=== PATIENT | male | born 1940 | race Caucasian/White ===

== ENCOUNTER 2019-06-29 08:42 | Observation (INO) | payer MEDICARE, BC ==
--- NOTE | 2019-06-29 09:12 | EDM.PDOC ---
ED HPI GENERAL MEDICAL PROBLEM - General Chief Complaint: Cardiovascular Problem Stated Complaint: DIZZY/LIGHT HEADED Time Seen by Provider: 06/29/19 09:01 Source of Information: Reports: Patient, EMS Notes Reviewed History Limitations: Reports: No Limitations - History of Present Illness INITIAL COMMENTS - FREE TEXT/NARRATIVE: This is a pleasant elderly gentleman who presents to the emergency room with a history of feeling dizzy this morning while backing his car up. Patient denies chest pain shortness of breath nausea or vomiting. States he has had a heart attack 15 years ago and at that time felt dizzy but had chest pain and arm pain. Patient has had 4 stents. Onset: Today Duration: Hour(s):, Resolved Prior to Arrival Location: Reports: Generalized Severity: Moderate Improves with: Reports: Rest Associated Symptoms: Reports: Weakness - Related Data Allergies Allergy/AdvReac Type Severity Reaction Status Date / Time Penicillins Allergy Rash Verified 06/29/19 09:08 Home Meds: Home Meds Aspirin [Halfprin] 81 mg PO DAILY 05/20/13 [History] Benazepril [Lotensin] 20 mg PO BID 05/20/13 [History] Folic Acid 1 mg PO DAILY 05/20/13 [History] Metoprolol Succinate [Toprol XL] 50 mg PO DAILY 05/20/13 [History] atorvaSTATin [Lipitor] 20 mg PO BEDTIME 05/20/13 [History] ED ROS GENERAL - Review of Systems Review Of Systems: See Below Constitutional: Reports: No Symptoms HEENT: Reports: No Symptoms Respiratory: Reports: No Symptoms Cardiovascular: Reports: Lightheadedness Endocrine: Reports: No Symptoms GI/Abdominal: Reports: No Symptoms : Reports: No Symptoms Musculoskeletal: Reports: No Symptoms Skin: Reports: No Symptoms Neurological: Reports: No Symptoms Psychiatric: Reports: No Symptoms Hematologic/Lymphatic: Reports: No Symptoms Immunologic: Reports: No Symptoms ED EXAM, GENERAL - Physical Exam Exam: See Below Exam Limited By: No Limitations General Appearance: Alert, WD/WN, No Apparent Distress Eye Exam: Bilateral Eye: Normal Fundi, Normal Inspection Ear Exam: Bilateral Ear: Auricle Normal, Canal Normal Nose: Normal Inspection, Normal Mucosa Throat/Mouth: Normal Inspection, Normal Lips, Normal Teeth, Normal Oropharynx, Normal Voice Head: Atraumatic, Normocephalic Neck: Normal Inspection, Supple, Non-Tender Respiratory/Chest: No Respiratory Distress, Lungs Clear, Normal Breath Sounds, No Accessory Muscle Use, Chest Non-Tender Cardiovascular: Normal Peripheral Pulses, Regular Rate, Rhythm, No Edema, No Gallop, No JVD GI/Abdominal: Normal Bowel Sounds, Soft, Non-Tender, No Organomegaly, No Distention, No Abnormal Bruit, No Mass (Male) Exam: Deferred Rectal (Males) Exam: Deferred Back Exam: Normal Inspection, Full Range of Motion Extremities: Normal Inspection, Normal Range of Motion, Non-Tender, No Pedal Edema, Normal Capillary Refill Neurological: Alert, Oriented, CN II-XII Intact, Normal Cognition, Normal Gait, Normal Reflexes, No Motor/Sensory Deficits Psychiatric: Normal Affect, Normal Mood Skin Exam: Warm, Dry, Intact, Normal Color, No Rash Lymphatic: No Adenopathy EKG INTERPRETATION EKG Date: 06/29/19 Comparison: NA - No Prior EKG (In the 40s with PVCs) Course - Vital Signs Text/Narrative:: 79-year-old gentleman resents emergency room with dizziness after backing up his car this morning. Patient denies chest pain shortness of breath nausea or vomiting. Patient called 911 was brought to the emergency room EKG shows a PVCs with a rate down into the 40s. Patient is asymptomatic at this time. Patient's physical exam is noncontributory. Patient is a pleasant elderly gentleman in no distress. New Patient's labs are normal cardiac enzymes are negative. Patient has been monitored in the ER 2 hours noted to his heart rate drops in the 40s he is sleeping and asymptomatic Have discussed the case with Dr. Méndez the hospitalist on-call. [place] patient can be admitted to observation diagnosis symptomatic bradycardia on beta- blockers Last Recorded V/S: Last Vital Signs Temp 97.8 F 06/29/19 09:01 Pulse 69 06/29/19 09:01 Resp 18 06/29/19 09:01 BP 136/69 06/29/19 09:01 Pulse Ox 94 L 06/29/19 09:01 - Orders/Labs/Meds Orders: Active Orders 24 hr Category Date Time Status EKG 12 Lead [EKG Documentation Completion] [RC] ROUTINE Care 06/29/19 09:12 Active Labs: Laboratory Tests 06/29/19 06/29/19 06/29/19 Range/Units 08:45 08:45 08:45 WBC 7.49 (4.0-11.0) K/uL RBC 4.84 (4.50-5.90) M/uL Hgb 15.5 (13.0-17.0) g/dL Hct 47.0 (38.0-50.0) % MCV 97.1 (80.0-98.0) fL MCH 32.0 (27.0-32.0) pg MCHC 33.0 (31.0-37.0) g/dL RDW Std Deviation 47.0 (28.0-62.0) fl RDW Coeff of Melba 13 (11.0-15.0) % Plt Count 207 (150-400) K/uL MPV 10.60 (7.40-12.00) fL Neut % (Auto) 60.1 (48.0-80.0) % Lymph % (Auto) 21.9 (16.0-40.0) % [place] % (Auto) 12.0 (0.0-15.0) % Eos % (Auto) 5.6 (0.0-7.0) % Baso % (Auto) 0.4 (0.0-1.5) % Neut # (Auto) 4.5 (1.4-5.7) K/uL Lymph # (Auto) 1.6 (0.6-2.4) K/uL [place] # (Auto) 0.9 H (0.0-0.8) K/uL Eos # (Auto) 0.4 (0.0-0.7) K/uL Baso # (Auto) 0.0 (0.0-0.1) K/uL Nucleated RBC % 0.0 /100WBC Nucleated RBCs # 0 K/uL INR 1.04 Sodium 140 (136-148) mmol/L Potassium 3.9 (3.5-5.1) mmol/L Chloride 103 (98-107) mmol/L Carbon Dioxide 27.3 (21.0-32.0) mmol/L BUN 15 (7.0-18.0) mg/dL Creatinine 1.1 (0.8-1.3) mg/dL Est Cr Clr Drug Dosing 63.31 mL/min Estimated GFR (MDRD) > 60.0 ml/min Glucose 111 H (74-106) mg/dL Calcium 8.6 (8.5-10.1) mg/dL Total Bilirubin 1.4 H (0.2-1.0) mg/dL AST 25 (15-37) IU/L ALT 29 (14-63) IU/L Alkaline Phosphatase 44 L (46-116) U/L Troponin I < 0.050 (0.000-0.056) ng/mL Total Protein 6.6 (6.4-8.2) g/dL Albumin 3.7 (3.4-5.0) g/dL Globulin 2.9 (2.6-4.0) g/dL Albumin/Globulin Ratio 1.3 (0.9-1.6) Meds: Medications Discontinued Medications Generic Name Dose Route Start Last Admin Trade Name Dm PRN Reason Stop Dose Admin Aspirin 324 mg 06/29/19 09:14 06/29/19 09:38 Aspirin PO 06/29/19 09:15 Not Given ONETIME ONE Sodium Chloride 1,000 mls @ 1,000 mls/hr 06/29/19 09:13 06/29/19 09:37 Normal Saline IV 06/29/19 10:12 1,000 mls/hr .Bolus ONE Administration Departure - Departure Time of Disposition: 10:45 Disposition: Refer to Observation Condition: Good Clinical Impression: Bradycardia Referrals: Mario Villeda MD [Primary Care Provider] - Forms: ED Department Discharge Sepsis Event Note - Evaluation Sepsis Screening Result: No Definite Risk - Focused Exam Vital Signs: Vital Signs Temp Pulse Resp BP Pulse Ox 06/29/19 09:01 97.8 F 69 18 136/69 94 L Date Exam was Performed: 06/29/19 Time Exam was Performed: 10:42 - My Orders Last 24 Hours: My Active Orders 06/29/19 09:12 EKG 12 Lead [EKG Documentation Completion] [RC] ROUTINE - Assessment/Plan Last 24 Hours: My Active Orders 06/29/19 09:12 EKG 12 Lead [EKG Documentation Completion] [RC] ROUTINE
[2019-06-29] MEDS ORDERED: Sodium Chloride 0.9% 1,000 ML IV ONE (09:13)
[2019-06-29] MEDS ORDERED: Aspirin 81 MG Tab.Chew PO ONE (09:14)
[2019-06-29 09:37] LABS: BLOOD UREA NITROGEN,BUN 15 mg/dL (7.0-18.0); CARBON DIOXIDE,CO2 27.3 mmol/L (21.0-32.0); CHLORIDE,CL 103 mmol/L (98-107); GLUCOSE RANDOM 111 mg/dL (74-106); POTASSIUM,K 3.9 mmol/L (3.5-5.1); SODIUM,NA 140 mmol/L (136-148)
--- NOTE | 2019-06-29 10:36 | CR ---
Chest: Portable view of the chest was obtained. Comparison: No prior chest imaging. Heart size is normal. Tortuous thoracic aorta is seen. Lungs are clear with no acute parenchymal change. Bony structures are grossly intact. Impression: 1. Nothing acute is appreciated on portable chest x-ray. Diagnostic code #1 This report was dictated in MDT
[2019-06-29] MEDS ORDERED: Acetaminophen 325 MG Tab PO PRN (11:47)
[2019-06-29] MEDS ORDERED: Ondansetron 4 MG/2 ML SDV IVPUSH PRN (11:47)
--- NOTE | 2019-06-29 12:02 | PCM.HP.2 ---
H&P History of Present Illness - General Date of Service: 06/29/19 Admit Problem/Dx: Admission Diagnosis/Problem Admission Diagnosis/Problem Bradyarrhythmia Source of Information: Patient, Old Records History Limitations: Reports: No Limitations - History of Present Illness Initial Comments - Free Text/Narative: This 79 year old male with pmh of HTN, CAD with stenting 15 years ago presented to the ED with complaints of dizziness that happened this morning. He reports he went about his morning as usual, went outside to move his car and then walked into the house and started feeling lightheaded and dizzy. He denies feeling as though he was going to pass out. He rested for a while and it go better. Then headed out to run errands and it returned and wasn't going away so he drove himself to the ED. He denies chest pain or jaw pain during any of this. No dyspnea or diaphoresis. No URI symptoms or sinus congestion. No ear pain or ear fullness. Dizziness did not worsen with position change or head movement. He denies abdominal pain, diarrhea or constiatpion. No black or bloody BMs. He reports he otherwise has been feeling well recently. He takes HTN medications, Lipitor and ASA daily. He was last seen by PCP in January for med refill and was doing well. Has not seen cardiology since aneurysm repair by Dr Chiu in [place] 5 years ago. He reports he smokes 2 cigars a day, no other tobacco use, no alcohol or recreational drug use. In the ED labwork WNL. INR 1.04, Bilirubin 1.4, which is near baseline from previous labwork reviewed, troponin negative. EKG revealed SR to SB with possible atrial rhythm with frequent PVCs. It was noted HR was dip to 40s on hall monitor, but he was remained symptomatic during this time frame. Orthostatic VS obtained, which were negative. He continues to feel good in ED with no return of dizziness. He will be admitted observation for dizziness, SB on beta blockers. PCP, Dr Villeda - Related Data Allergies/Adverse Reactions: Allergies Allergy/AdvReac Type Severity Reaction Status Date / Time Penicillins Allergy Rash Verified 06/29/19 12:11 Home Medications: Home Meds Aspirin [Halfprin] 81 mg PO DAILY 05/20/13 [History] Benazepril [Lotensin] 20 mg PO BID 05/20/13 [History] Folic Acid 1 mg PO DAILY 05/20/13 [History] Metoprolol Succinate [Toprol XL] 50 mg PO DAILY 05/20/13 [History] atorvaSTATin [Lipitor] 20 mg PO Q48H 05/20/13 [History] Past Medical History Cardiovascular History: Reports: Aneurysm, CAD, High Cholesterol, Hypertension, Stents. Denies: Afib, Blood Clots/VTE/DVT Respiratory History: Reports: None. Denies: Asthma, COPD Gastrointestinal History: Reports: None Genitourinary History: Reports: None Musculoskeletal History: Reports: None Neurological History: Reports: None Psychiatric History: Reports: None Endocrine/Metabolic History: Reports: None. Denies: Diabetes, Type II - Infectious Disease History Infectious Disease History: Reports: Chicken Pox, Measles - Past Surgical History Cardiovascular Surgical History: Reports: AAA Repair, Coronary Artery Stent Other Cardiovascular Surgeries/Procedures: Stents were in 2003. AAA repair in 2013 GI Surgical History: Reports: Appendectomy Social & Family History - Family History Family Medical History: Noncontributory - Tobacco Use Smoking Status *Q: Current Every Day Smoker Tobacco Use Within Last Twelve Months: Cigars Packs/Tins Daily Comment: smokes 2 cigars daily - Alcohol Use Alcohol Use History: No - Recreational Drug Use Recreational Drug Use: No - Living Situation & Occupation Living situation: Reports: with Spouse Occupation: Retired H&P Review of Systems - Review of Systems: Review Of Systems: See Below General: Reports: No Symptoms. Denies: Fever, Chills, Malaise, Weakness HEENT: Reports: No Symptoms. Denies: Ear Pain, Headaches, Sinus Congestion, Sore Throat, Vertigo (not currently experiencing) Pulmonary: Reports: No Symptoms. Denies: Shortness of Breath, Wheezing Cardiovascular: Reports: No Symptoms. Denies: Chest Pain Gastrointestinal: Reports: No Symptoms. Denies: Abdominal Pain, Black Stool, Bloody Stool, Nausea, Vomiting Genitourinary: Reports: No Symptoms. Denies: Dysuria, Frequency, Burning Skin: Reports: No Symptoms Psychiatric: Reports: No Symptoms Neurological: Reports: No Symptoms. Denies: Headache Hematologic/Lymphatic: Reports: No Symptoms Immunologic: Reports: No Symptoms Exam - Exam Exam: See Below - Vital Signs Vital Signs: Last Vital Signs Temp 97.8 F 06/29/19 09:01 Pulse 85 06/29/19 11:09 Resp 18 06/29/19 11:09 BP 126/68 06/29/19 11:09 Pulse Ox 94 L 06/29/19 11:09 Orthostatic Blood Pressure [ 151/88 Standing] Orthostatic Blood Pressure [ 129/67 Sitting] Orthostatic Blood Pressure [ 131/72 Supine] Weight: 90.718 kg - Exam General: Alert, Oriented, Cooperative HEENT: Conjunctiva Clear, Mucosa Moist & [place], Posterior Pharynx Clear Lungs: Clear to Auscultation, Normal Respiratory Effort Cardiovascular: Regular Rate (60s to auscultation), Regular Rhythm, Normal S1, Normal S2 GI/Abdominal Exam: Normal Bowel Sounds, Soft, Non-Tender Back Exam: Normal Inspection, Full Range of Motion Extremities: Normal Inspection, Normal Range of Motion, No Pedal Edema Neuro Extensive - Mental Status: Alert, Oriented x3 Neuro Extensive - Motor, Sensory, Reflexes: CN II-XII Intact Psychiatric: Alert, Normal Affect, Normal Mood - Patient Data Lab Results Last 24 hrs: Laboratory Results - last 24 hr 06/29/19 06/29/19 06/29/19 Range/Units 08:45 08:45 08:45 WBC 7.49 (4.0-11.0) K/uL RBC 4.84 (4.50-5.90) M/uL Hgb 15.5 (13.0-17.0) g/dL Hct 47.0 (38.0-50.0) % MCV 97.1 (80.0-98.0) fL MCH 32.0 (27.0-32.0) pg MCHC 33.0 (31.0-37.0) g/dL RDW Std Deviation 47.0 (28.0-62.0) fl RDW Coeff of Melba 13 (11.0-15.0) % Plt Count 207 (150-400) K/uL MPV 10.60 (7.40-12.00) fL Neut % (Auto) 60.1 (48.0-80.0) % Lymph % (Auto) 21.9 (16.0-40.0) % [place] % (Auto) 12.0 (0.0-15.0) % Eos % (Auto) 5.6 (0.0-7.0) % Baso % (Auto) 0.4 (0.0-1.5) % Neut # (Auto) 4.5 (1.4-5.7) K/uL Lymph # (Auto) 1.6 (0.6-2.4) K/uL [place] # (Auto) 0.9 H (0.0-0.8) K/uL Eos # (Auto) 0.4 (0.0-0.7) K/uL Baso # (Auto) 0.0 (0.0-0.1) K/uL Nucleated RBC % 0.0 /100WBC Nucleated RBCs # 0 K/uL INR 1.04 Sodium 140 (136-148) mmol/L Potassium 3.9 (3.5-5.1) mmol/L Chloride 103 (98-107) mmol/L Carbon Dioxide 27.3 (21.0-32.0) mmol/L BUN 15 (7.0-18.0) mg/dL Creatinine 1.1 (0.8-1.3) mg/dL Est Cr Clr Drug Dosing 63.31 mL/min Estimated GFR (MDRD) > 60.0 ml/min Glucose 111 H (74-106) mg/dL Calcium 8.6 (8.5-10.1) mg/dL Total Bilirubin 1.4 H (0.2-1.0) mg/dL AST 25 (15-37) IU/L ALT 29 (14-63) IU/L Alkaline Phosphatase 44 L (46-116) U/L Troponin I < 0.050 (0.000-0.056) ng/mL Total Protein 6.6 (6.4-8.2) g/dL Albumin 3.7 (3.4-5.0) g/dL Globulin 2.9 (2.6-4.0) g/dL Albumin/Globulin Ratio 1.3 (0.9-1.6) Result Diagrams: 06/29/19 08:45 06/29/19 08:45 EKG INTERPRETATION EKG Date: 06/29/19 Rate (Beats/Min): 60 P-Wave: Variable QRS: Normal ST-T: Normal QT: Normal EKG Interpretation Comments: frequent PVCs Sepsis Event Note - Evaluation Sepsis Screening Result: No Definite Risk - Focused Exam Vital Signs: Vital Signs Temp Pulse Resp BP Pulse Ox 06/29/19 11:09 85 18 126/68 94 L 06/29/19 10:50 70 18 126/69 96 06/29/19 10:00 58 L 18 141/75 H 96 06/29/19 09:20 59 L 18 133/73 95 06/29/19 09:01 97.8 F 69 18 136/69 94 L Date Exam was Performed: 06/29/19 Time Exam was Performed: 11:56 - Problem List (1) Dizziness SNOMED Code(s): 022739370, 592036461 ICD Code: R42 - DIZZINESS AND GIDDINESS Status: Acute Current Visit: Yes (2) CAD (coronary artery disease) SNOMED Code(s): 86629327 ICD Code: I25.10 - ATHSCL HEART DISEASE OF [place] CORONARY ARTERY W/O ANG PCTRS Status: Acute Current Visit: Yes (3) HTN (hypertension) SNOMED Code(s): 40227233 ICD Code: I10 - ESSENTIAL (PRIMARY) HYPERTENSION Status: Acute Current Visit: Yes (4) History of AAA (abdominal aortic aneurysm) repair SNOMED Code(s): 246901769 ICD Code: Z98.890 - OTHER SPECIFIED POSTPROCEDURAL STATES Status: Acute Current Visit: Yes (5) History of heart artery stent SNOMED Code(s): 962384959, 306592518 ICD Code: Z95.5 - PRESENCE OF CORONARY ANGIOPLASTY IMPLANT AND GRAFT Status : Acute Current Visit: Yes (6) Bradycardia SNOMED Code(s): 05617983 ICD Code: R00.1 - BRADYCARDIA, UNSPECIFIED Status: Acute Current Visit: Yes Problem List Initiated/Reviewed/Updated: Yes Orders Last 24hrs: Active Orders 24 hr Category Date Time Status Admission Status [Patient Status] [ADT] Stat ADT 06/29/19 10:46 Active Antiembolic Devices [RC] PER UNIT ROUTINE Care 06/29/19 11:52 Active EKG 12 Lead [EKG Documentation Completion] [RC] ROUTINE Care 06/29/19 09:12 Active Intake and Output [RC] QSHIFT Care 06/29/19 11:52 Active Orthostatic Vital Signs [RC] ASDIRECTED Care 06/29/19 10:44 Active Oxygen Therapy [RC] PRN Care 06/29/19 11:47 Active Telemetry Monitoring [Cardiac Monitoring] [RC] . Care 06/29/19 10:53 Active DIRECTED Up With Assistance [RC] ASDIRECTED Care 06/29/19 11:47 Active VTE/DVT Education [RC] PER UNIT ROUTINE Care 06/29/19 11:47 Active Vital Signs [RC] Q4H Care 06/29/19 11:47 Active Heart Healthy Diet [DIET] Diet 06/29/19 Lunch Active MAGNESIUM [CHEM] Routine Lab 06/29/19 08:45 Received Acetaminophen [Tylenol] Med 06/29/19 11:47 Active 650 mg PO Q4H PRN Ondansetron [Zofran] Med 06/29/19 11:47 Active 4 mg IVPUSH Q4H PRN Sequential Compression Device [OM.PC] Per Unit Routine Oth 06/29/19 11:52 Ordered Resuscitation Status Routine Resus Stat 06/29/19 11:47 Ordered Medication Orders Acetaminophen (Tylenol) 650 mg PO Q4H PRN PRN Reason: Pain (Mild 1-3)/fever Ondansetron HCl (Zofran) 4 mg IVPUSH Q4H PRN PRN Reason: Nausea Assessment/Plan Comment:: This 79 year old admitted with dizziness, bradycardia 1. Dizziness, bradycardia - Currently no dizziness, even when HR noted to be 40-50s, bigeminy PVCs - Check magnesium, Potassium 3.9 - Hold Metoprolol - Monitor on telemetry - review old EKGs from Cardiology - Set up with outpatient Cardiology evaluation - Obtain ECHO - DC home with Zio patch 2. HTN/CAD: - Stable, orthostatic BPs stable - Continue Lotensin - Continue statin and ASA VTE prophylaxis: SCDs Dispo: 1-2 days pending improvement - Mortality Measure Prognosis:: Good
[2019-06-29] MEDS ORDERED: atorvaSTATin 20 MG Tab PO SCH ×2 (12:45→21:00)
[2019-06-29] MEDS ORDERED: Magnesium Sulfate/Water 2 GM in Premix Bag 1 BAG IV ONE (15:46)
[2019-06-29] MEDS: Benazepril 10 MG Tab PO SCH (20:25)
[2019-06-30] MEDS: Benazepril 10 MG Tab PO SCH (08:24)
[2019-06-30] MEDS ORDERED: Aspirin 81 MG Tab.EC PO SCH (09:00)
[2019-06-30] MEDS ORDERED: Folic Acid 1 MG Tab PO SCH (09:00)
--- NOTE | 2019-06-30 09:16 | CT ---
Head CT Technique: Multiple axial sections through the brain were obtained. Comparison: No prior intracranial imaging is available. Findings: Ventricles along with basal cisterns and sulci over the convexities appear within normal limits for the patient's age. No abnormal parenchymal densities are seen. No evidence of intracranial hemorrhage. No midline shift or mass-effect is seen. Atherosclerotic calcification is seen within the carotid siphon. Hypoplastic right maxillary sinus is seen which shows opacification which is most likely chronic. Slight areas mucosal thickening or possibly small retention cysts are noted within the left maxillary sinus. Mild mucosal thickening is scattered within the ethmoid sinuses. Mastoid sinuses show nothing acute. No acute calvarial abnormality is appreciated. Impression: 1. Findings as noted above. 2. Nothing acute is seen on noncontrast head CT study. Diagnostic code #2 This report was dictated in MDT
--- NOTE | 2019-06-30 12:28 | PCM.PN ---
- General Info Date of Service: 06/30/19 Admission Dx/Problem (Free Text): Admission Diagnosis/Problem Admission Diagnosis/Problem Bradyarrhythmia Subjective Update: Feeling ok, had some dizziness, off balance this morning. No chest pain or SOB. No palpitations. No syncope or near syncope feelings. Feels body is leaning and feels off balance. Functional Status: Reports: Pain Controlled, Tolerating Diet, Ambulating, Urinating - Review of Systems Pulmonary: Reports: No Symptoms. Denies: Shortness of Breath Cardiovascular: Reports: No Symptoms. Denies: Chest Pain Gastrointestinal: Reports: No Symptoms. Denies: Abdominal Pain, Nausea, Vomiting Genitourinary: Reports: No Symptoms. Denies: Dysuria, Frequency, Burning Musculoskeletal: Reports: No Symptoms Skin: Reports: No Symptoms Neurological: Reports: Dizziness, Gait Disturbance. Denies: Headache, Syncope, Difficulty Walking, Weakness, Change in Speech Psychiatric: Reports: No Symptoms - Patient Data Vitals - Most Recent: Last Vital Signs Temp 97.7 F 06/30/19 08:20 Pulse 75 06/30/19 08:20 Resp 18 06/30/19 08:20 BP 142/87 H 06/30/19 08:24 Pulse Ox 97 06/30/19 08:20 Orthostatic Blood Pressure [ 135/90 Standing] Orthostatic Blood Pressure [ 139/91 Sitting] Orthostatic Blood Pressure [ 119/58 Supine] Weight - Most Recent: 90.718 kg I&O - Last 24 Hours: Intake & Output 06/29/19 06/30/19 06/30/19 22:59 06:59 14:59 Intake Total 290 740 Balance 290 740 Lab Results Last 24 Hours: Laboratory Results - last 24 hr 06/30/19 Range/Units 10:40 Urine Color YELLOW Urine Appearance CLEAR Urine pH 7.0 (5.0-8.0) Ur Specific [place] 1.015 (1.001-1.035) Urine Protein NEGATIVE (NEGATIVE) mg/dL Urine Glucose (UA) NEGATIVE (NEGATIVE) mg/dL Urine Ketones NEGATIVE (NEGATIVE) mg/dL Urine Occult Blood NEGATIVE (NEGATIVE) Urine Nitrite NEGATIVE (NEGATIVE) Urine Bilirubin NEGATIVE (NEGATIVE) Urine Urobilinogen 0.2 (<2.0) EU/dL Ur Leukocyte Esterase NEGATIVE (NEGATIVE) Med Orders - Current: Current Medications Acetaminophen (Tylenol) 650 mg PO Q4H PRN PRN Reason: Pain (Mild 1-3)/fever Last Admin: 06/30/19 04:46 Dose: 650 mg Aspirin (Halfprin) 81 mg PO DAILY [facility] Last Admin: 06/30/19 08:23 Dose: 81 mg Atorvastatin Calcium (Lipitor) 20 mg PO Q48H [facility] Last Admin: 06/29/19 20:25 Dose: 20 mg Benazepril HCl (Lotensin) 20 mg PO BID [facility] Last Admin: 06/30/19 08:24 Dose: 20 mg Folic Acid (Folic Acid) 1 mg PO DAILY [facility] Last Admin: 06/30/19 08:23 Dose: 1 mg Ondansetron HCl (Zofran) 4 mg IVPUSH Q4H PRN PRN Reason: Nausea Discontinued Medications Aspirin (Aspirin) 324 mg PO ONETIME ONE Stop: 06/29/19 09:15 Last Admin: 06/29/19 09:38 Dose: Not Given Sodium Chloride (Normal Saline) 1,000 mls @ 1,000 mls/hr IV .Bolus ONE Stop: 06/29/19 10:12 Last Admin: 06/29/19 09:37 Dose: 1,000 mls/hr Magnesium Sulfate 2 gm/ Premix 50 mls @ 50 mls/hr IV ONETIME ONE Stop: 06/29/19 16:45 Last Admin: 06/29/19 16:31 Dose: 50 mls/hr - Exam General: Alert, Oriented, Cooperative, No Acute Distress Lungs: Clear to Auscultation, Normal Respiratory Effort Cardiovascular: Regular Rate, Regular Rhythm GI/Abdominal Exam: Normal Bowel Sounds, Soft, Non-Tender Extremities: Normal Inspection, Normal Range of Motion, Non-Tender Neurological: No New Focal Deficit, Strength Equal Bilateral, Reflexes Equal Bilateral, Other (feels as though he is leaning to the left, but no obvious drifting noted, but during ambulation it is noted. Feels very unsteady) Psy/Mental Status: Alert, Normal Affect, Normal Mood Sepsis Event Note - Evaluation Sepsis Screening Result: No Definite Risk - Focused Exam Vital Signs: Vital Signs Temp Pulse Resp BP BP Pulse Ox 06/30/19 08:24 142/87 H 06/30/19 08:20 97.7 F 75 18 142/87 H 97 06/30/19 05:00 97.3 F 58 L 18 114/67 95 06/30/19 01:00 97.7 F 52 L 18 122/69 95 Date Exam was Performed: 06/30/19 Time Exam was Performed: 12:22 - Problem List & Annotations (1) Dizziness SNOMED Code(s): 631423670, 039387623 Code(s): R42 - DIZZINESS AND GIDDINESS Status: Acute Current Visit: Yes (2) CAD (coronary artery disease) SNOMED Code(s): 84271460 Code(s): I25.10 - ATHSCL HEART DISEASE OF [place] CORONARY ARTERY W/O ANG PCTRS Status: Acute Current Visit: Yes (3) HTN (hypertension) SNOMED Code(s): 30503602 Code(s): I10 - ESSENTIAL (PRIMARY) HYPERTENSION Status: Acute Current Visit: Yes (4) History of AAA (abdominal aortic aneurysm) repair SNOMED Code(s): 814898944 Code(s): Z98.890 - OTHER SPECIFIED POSTPROCEDURAL STATES Status: Acute Current Visit: Yes (5) History of heart artery stent SNOMED Code(s): 249551041, 338946071 Code(s): Z95.5 - PRESENCE OF CORONARY ANGIOPLASTY IMPLANT AND GRAFT Status : Acute Current Visit: Yes (6) Bradycardia SNOMED Code(s): 57379182 Code(s): R00.1 - BRADYCARDIA, UNSPECIFIED Status: Acute Current Visit: Yes - Problem List Review Problem List Initiated/Reviewed/Updated: Yes - My Orders Last 24 Hours: My Active Orders 06/29/19 11:47 Oxygen Therapy [RC] PRN Up With Assistance [RC] ASDIRECTED VTE/DVT Education [RC] PER UNIT ROUTINE Vital Signs [RC] Q4H Acetaminophen [Tylenol] 650 mg PO Q4H PRN Ondansetron [Zofran] 4 mg IVPUSH Q4H PRN Resuscitation Status Routine 06/29/19 11:52 Antiembolic Devices [RC] PER UNIT ROUTINE Intake and Output [RC] Q12H Sequential Compression Device [OM.PC] Per Unit Routine 06/29/19 12:02 PT Evaluation and Treatment [CONS] Routine 06/29/19 12:30 Echo Comp wo Cont [US] Urgent 06/29/19 21:00 Benazepril [Lotensin] 20 mg PO BID atorvaSTATin [Lipitor] 20 mg PO Q48H 06/30/19 08:36 EKG 12 Lead [EKG Documentation Completion] [RC] STAT 06/30/19 09:00 Aspirin [Halfprin] 81 mg PO DAILY Folic Acid 1 mg PO DAILY 06/30/19 10:19 Orthostatic Vital Signs [RC] ONETIME 06/30/19 12:21 Ang Head wo Cont [MR] Urgent Ang Neck w Cont [MR] Urgent Brain w wo Cont [MR] Urgent - Plan Plan:: This 79 year old admitted with dizziness, bradycardia 1. Dizziness, bradycardia - Mild dizziness this morning, with feelings of unsteady gait. HR not bradycardic while dizziness felt. - Head CT obtained, no mass, hemorrhage or stroke noted. 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 Will obtain MRI brain and MRA head and neck to evaluate for CVA. - Patient agrees is more unsteady feeling than dizziness. - Hold Metoprolol - Monitor on telemetry - Obtain A1c and lipid panel. - ECHO pending - DC home with Zio patch, Set up with outpatient Cardiology evaluation 2. HTN/CAD: - Stable, orthostatic BPs stable - Continue Lotensin - Continue statin and ASA VTE prophylaxis: SCDs Dispo: 1-2 days pending improvement
--- NOTE | 2019-06-30 17:40 | CT ---
Head CT Technique: Multiple axial sections through the brain were obtained. Intravenous contrast was not utilized. Comparison: Previous head CT study performed earlier on the same day. Findings: Ventricles along with basal cisterns and sulci over the convexities appear within normal limits for the patient's age. Stable sinus findings are seen. No abnormal parenchymal densities are seen. No evidence of intracranial hemorrhage. No midline shift or mass-effect is appreciated. Bone window settings were reviewed. No acute calvarial finding is seen. Impression: 1. Stable head CT study from previous exam performed earlier on the same day. 2. If patient's symptoms warrant further evaluation, consider MRI brain. Diagnostic code #2 This report was dictated in MDT
--- NOTE | 2019-06-30 17:55 | PCM.SN.2 ---
- Free Text/Narrative Note: Was called by nursing about patient's change in status at 1645. Evaluated patient and he was complaining of new onset left facial numbness, trouble swallowing, difficulty speaking for the last 10 minutes. Vitals: BP 149/86, tele HR 40-70s, O2- 97%, temp 97.7, and glucose of 104. On exam, A&Ox3, slight drooping on left side of mouth, strength 5/5 in all extremities, no slurred speech. Had CT of head this AM which was negative, MRI/MRA scheduled for tomorrow. Obtained repeat CT and no change from previous imaging. Failed bedside swallow study. Placed NPO, speech therapy consult placed. Will hold blood pressure medication and allow for permissive hypertension.
--- NOTE | 2019-06-30 22:44 | PCM.DCSUM1 ---
Discharge Summary - Discharge Data Discharge Date: 06/30/19 Discharge Disposition: DC/Tfer to Acute Hospital 02 Condition: Stable - Referral to Home Health Primary Care Physician: Mario Villeda MD - Patient Summary/Data Consults: Consultations 06/29/19 12:02 PT Evaluation and Treatment [CONS] Routine 06/30/19 17:58 Consult to Speech Language Pathology [TAX FORM PREPARER Evaluation and Treatment] [CONS] Routine Hospital Course: This 79 year old male with pmh of HTN, CAD with stenting 15 years ago presented to the ED with complaints of dizziness that happened the morning of admission. In the ED lab work was WNL. INR 1.04, Bilirubin 1.4, which is near baseline from previous lab work reviewed, troponin negative. EKG revealed SR to SB with possible atrial rhythm with frequent PVCs. It was noted HR was dip to 40s on monitor technician, but he was remained symptomatic during this time frame. Orthostatic VS obtained, which were normal. He was given IV fluids in the ED and he had resolution of his symptoms. He was admitted observation for dizziness , Sinus bradycardia on beta blockers. The following morning patient reported a few episodes of dizziness overnight but was feeling fine and ready to go home this morning. Around noon patient was evaluated by physical therapy and was noted to be drifting to the left. Plan was for MRI/MRA of head and neck which can be scheduled tomorrow. Patient this evening developed facial numbness and balance appears to be worsening. Patient is not a tPA candidate. Patient and family is requesting transfer to [place]. I spoke with neurologist Dr. Dumont and ER physician Dr. Ruiz at [facility] who has accepted the patient. Ground transportation is being arranged. - Discharge Plan Home Medications: Home Meds Aspirin [Halfprin] 81 mg PO DAILY 05/20/13 [History] Benazepril [Lotensin] 20 mg PO BID 05/20/13 [History] Folic Acid 1 mg PO DAILY 05/20/13 [History] Metoprolol Succinate [Toprol XL] 50 mg PO DAILY 05/20/13 [History] atorvaSTATin [Lipitor] 20 mg PO Q48H 05/20/13 [History] Patient Handouts: Bradycardia, Adult Referrals: Kevin Glasgow MD [Physician] - 08/17/19 11:00 am Mario Villeda MD [Primary Care Provider] - 07/07/19 8:30 am - Discharge Summary/Plan Comment DC Time >30 min.: No - Patient Data Vitals - Most Recent: Last Vital Signs Temp 36.5 C 06/30/19 16:55 Pulse 55 L 06/30/19 16:55 Resp 16 06/30/19 16:55 BP 149/86 H 06/30/19 16:55 Pulse Ox 97 06/30/19 16:55 Orthostatic Blood Pressure [ 135/90 Standing] Orthostatic Blood Pressure [ 139/91 Sitting] Orthostatic Blood Pressure [ 119/58 Supine] Weight - Most Recent: 90.718 kg I&O - Last 24 hours: Intake & Output 06/30/19 06/30/19 06/30/19 06:59 14:59 22:59 Intake Total 740 1000 Balance 740 1000 Lab Results - Last 24 hrs: Laboratory Results - last 24 hr 06/30/19 Range/Units 10:40 Urine Color YELLOW Urine Appearance CLEAR Urine pH 7.0 (5.0-8.0) Ur Specific [place] 1.015 (1.001-1.035) Urine Protein NEGATIVE (NEGATIVE) mg/dL Urine Glucose (UA) NEGATIVE (NEGATIVE) mg/dL Urine Ketones NEGATIVE (NEGATIVE) mg/dL Urine Occult Blood NEGATIVE (NEGATIVE) Urine Nitrite NEGATIVE (NEGATIVE) Urine Bilirubin NEGATIVE (NEGATIVE) Urine Urobilinogen 0.2 (<2.0) EU/dL Ur Leukocyte Esterase NEGATIVE (NEGATIVE) Med Orders - Current: Current Medications Acetaminophen (Tylenol) 650 mg PO Q4H PRN PRN Reason: Pain (Mild 1-3)/fever Last Admin: 06/30/19 04:46 Dose: 650 mg Aspirin (Halfprin) 81 mg PO DAILY [facility] Last Admin: 06/30/19 08:23 Dose: 81 mg Atorvastatin Calcium (Lipitor) 20 mg PO Q48H [facility] Last Admin: 06/29/19 20:25 Dose: 20 mg Folic Acid (Folic Acid) 1 mg PO DAILY [facility] Last Admin: 06/30/19 08:23 Dose: 1 mg Ondansetron HCl (Zofran) 4 mg IVPUSH Q4H PRN PRN Reason: Nausea Discontinued Medications Aspirin (Aspirin) 324 mg PO ONETIME ONE Stop: 06/29/19 09:15 Last Admin: 06/29/19 09:38 Dose: Not Given Benazepril HCl (Lotensin) 20 mg PO BID [facility] Last Admin: 06/30/19 08:24 Dose: 20 mg Sodium Chloride (Normal Saline) 1,000 mls @ 1,000 mls/hr IV .Bolus ONE Stop: 06/29/19 10:12 Last Admin: 06/29/19 09:37 Dose: 1,000 mls/hr Magnesium Sulfate 2 gm/ Premix 50 mls @ 50 mls/hr IV ONETIME ONE Stop: 06/29/19 16:45 Last Admin: 06/29/19 16:31 Dose: 50 mls/hr
== END 2019-07-01 04:15 ==
LOC: MW.ED 08:42 → MW.MS 10:46
PROVIDERS: ADMIT Internal Medicine; ATTEND Internal Medicine
DX: R42 Dizziness and giddiness (principal); R00.1 Bradycardia, unspecified; I10 Essential (primary) hypertension; I25.10 Atherosclerotic heart disease of native coronary artery without angina pectoris; R26.81 Unsteadiness on feet; E78.00 Pure hypercholesterolemia, unspecified; F17.210 Nicotine dependence, cigarettes, uncomplicated; Z79.899 Other long term (current) drug therapy; Z98.890 Other specified postprocedural states; Z95.5 Presence of coronary angioplasty implant and graft; Z79.82 Long term (current) use of aspirin; Z88.0 Allergy status to penicillin; Z86.79 Personal history of other diseases of the circulatory system
CPT/HCPCS: 70450; 71045; 80053; 81003; 82962; 83735; 84484; 85025; 85610; 93005; 93306; 96360; 96361; 97161; 99285; A9270; J3475; J7030; 99283

== ENCOUNTER 2019-12-17 00:12 | Emergency (ER) | payer MEDICARE, BC ==
[2019-12-17] MEDS ORDERED: Sodium Chloride 0.9% 2.5 ML Syringe FLUSH PRN (00:40)
[2019-12-17] MEDS ORDERED: Sodium Chloride 0.9% 10 ML Syringe FLUSH PRN (00:40)
--- NOTE | 2019-12-17 01:23 | EDM.PDOC ---
ED HPI GENERAL MEDICAL PROBLEM - General Chief Complaint: Respiratory Problem Stated Complaint: COVID PT. SOB Time Seen by Provider: 12/17/19 00:25 - History of Present Illness INITIAL COMMENTS - FREE TEXT/NARRATIVE: HISTORY AND PHYSICAL: History of present illness: Is a 79-year-old gentleman with a history significant for hypertension and coronary artery disease who presents ER today secondary to shortness of breath when he laid down in bed today. Patient reports that he was informed that he had coronavirus today after being tested on Thursday, 2 days ago. Patient reports no fevers, shakes, chills. Patient denies any nausea vomiting or diarrhea. Patient reports he feels generalized weakness. Patient denies any dysuria, frequency, urgency. Patient reports a nonproductive cough with a sore throat. Review of systems: As per history of present illness and below otherwise all systems reviewed and negative. MDM: Nurses notes reviewed and agree with PFSH, ROS, V/S. Any exceptions to agreement documented on physician record. Other than the symptoms associated with the present events, the following is reported with regard to recent health: General: (-) fever. HENT: (+) congestion. Respiratory: (+) cough. Cardiovascular:(-) chest pain. GI: (-) abdominal pain : (-) urinary complaints. Musculoskeletal: (-) other aches or pains. Endocrine: (-) generalized weakness. Neurological: (-) localized weakness. Psychiatric: (-)emotional stress Past medical history: As per history of present illness and as reviewed below otherwise noncontributory. Surgical history: As per history of present illness and as reviewed below otherwise noncontributory. Social history: No reported history of drug or alcohol abuse. Family history: As per history of present illness and as reviewed below otherwise noncontrib utory. Physical exam: HEENT: Atraumatic, normocephalic, pupils reactive, negative for conjunctival pallor or scleral icterus, mucous membranes moist, throat clear, neck supple, nontender, trachea midline. Lungs: Clear to auscultation, breath sounds equal bilaterally, chest nontender. Heart: S1S2, regular, negative for clicks, rubs, or JVD. Abdomen: Soft, nondistended, nontender. Negative for masses or hepatosplenomegaly. Negative for costovertebral tenderness. Pelvis: Stable nontender. Genitourinary: Deferred. Rectal: Deferred. Extremities: Atraumatic, negative for cords or calf pain. Neurovascular unremarkable. Neuro: Awake, alert, oriented. Cranial nerves II through XII unremarkable. Cerebellum unremarkable. Motor and sensory unremarkable throughout. Exam nonfocal. Diagnostics: Chest Xray: Normal cardiac silhouette No infiltrates or effusions identified. No PTX No evidence of acute bony fracture. As interpreted by ER MD: Rivka EKG: Normal sinus rhythm heart rate of 63 with occasional PVCs Nonspecific ST-T wave abnormalities Normal axis No evidence of ST elevation ID As interpreted by ER physician: [employer]: Patient with elevated D-dimer. Patient's presentation does not appear to be consistent with PE/dissection/TAD. I do not feel that the risks and benefits warrant CT scan with contrast at this time. Patient agrees and will return the ER if he has worsening symptoms. Assessment and plan: 79-year-old gentleman who presents ER today with recent diagnosis of coronavirus and increasing shortness of breath. Patient's pulse ox in the ER is 96 to 98% on room air. Patient is not exhibiting any O2 deficit at this time. Patient is clinically hemodynamically stable. Patient's troponin level is elevated 0.068. Patient is not experiencing chest discomfort. Patient's EKG does not reveal any evidence of ST elevation ID. Patient had a repeat 2-hour troponin level performed which is 0.08. Given the elevation in his troponin, his significant cardiac history and his shortness of breath, patient will need admission for further cardiac monitoring. Patient's pipefitter welder is at [facility] Dr. Ry Santos 3:35 AM: [facility] contacted. No Covid bed availability. 3:40 AM: [facility] contacted, no coronavirus beds available. 3:45 AM: [facility] contacted, no coronavirus beds available. 3:50 AM: [facility] contacted and have availability for transfer. Case discussed with Dr. Webber who is agreed to assist with transfer the patient. Heparin held as patient currently on Eliquis. Critical Care: The high probability of sudden, clinically significant deterioration in the patient's condition required the highest level of my preparedness to intervene urgently. The services I provided to this patient were to treat and/or prevent clinically significant deterioration. Services included the following: chart data review, reviewing nursing notes and/or old charts, documentation time, credit consultant collaboration regarding findings and treatment options, medication orders and management, direct patient care, vital sign assessments and ordering, interpreting and reviewing diagnostic studies/lab tests. Aggregate critical care time includes only time during which I was engaged inwork directly related to the patient's care, as described above, whether at the bedside or elsewhere in the Emergency Department. It did not include time spent performing other reported procedures or the services of residents, students, nurses or physician assistants. Critical Care Time: 35 minutes - Related Data Allergies Allergy/AdvReac Type Severity Reaction Status Date / Time Penicillins Allergy Rash Verified 12/17/19 00:30 Home Meds: Home Meds Aspirin [Halfprin] 81 mg PO DAILY 05/20/13 [History] Benazepril [Lotensin] 20 mg PO BID 05/20/13 [History] Folic Acid 1 mg PO DAILY 05/20/13 [History] atorvaSTATin [Lipitor] 80 mg PO DAILY 05/20/13 [History] Apixaban [Eliquis] 5 mg PO DAILY 12/17/19 [History] Past Medical History Cardiovascular History: Reports: Aneurysm, CAD, High Cholesterol, Hypertension, Stents Respiratory History: Reports: None Gastrointestinal History: Reports: None Other Gastrointestinal History: hemrroid sx Genitourinary History: Reports: None Musculoskeletal History: Reports: None Neurological History: Reports: None, TIA Other Neuro History: tia in june 2019 Psychiatric History: Reports: None Endocrine/Metabolic History: Reports: None - Infectious Disease History Infectious Disease History: Reports: Chicken Pox, Measles, Mumps, Rubella - Past Surgical History Cardiovascular Surgical History: Reports: AAA Repair, Coronary Artery Stent Other Cardiovascular Surgeries/Procedures: Stents were in 2003. AAA repair in 2013 GI Surgical History: Reports: Appendectomy Social & Family History - Family History Family Medical History: Noncontributory - Caffeine Use Caffeine Use: Reports: Coffee - Recreational Drug Use Recreational Drug Use: No - Living Situation & Occupation Living situation: Reports: with Spouse Occupation: Retired ED ROS GENERAL - Review of Systems Review Of Systems: See Below ED EXAM, GENERAL - Physical Exam Exam: See Below #1 Interpretation EKG Interpretation Comments: EKG: Normal sinus rhythm heart rate of [address]-T wave abnormalities Normal axis No evidence of ST elevation ID As interpreted by ER physician: Rivka Warren - Vital Signs Last Recorded V/S: Last Vital Signs Temp 96.8 F L 12/17/19 04:08 Pulse 62 12/17/19 04:08 Resp 18 12/17/19 04:08 BP 130/72 12/17/19 04:08 Pulse Ox 96 12/17/19 04:08 - Orders/Labs/Meds Labs: Laboratory Tests 12/17/19 12/17/19 12/17/19 Range/Units 01:05 01:05 01:05 WBC 4.28 (4.0-11.0) K/uL RBC 4.56 (4.50-5.90) M/uL Hgb 14.4 (13.0-17.0) g/dL Hct 43.1 (38.0-50.0) % MCV 94.5 (80.0-98.0) fL MCH 31.6 (27.0-32.0) pg MCHC 33.4 (31.0-37.0) g/dL RDW Std Deviation 43.0 (28.0-62.0) fl RDW Coeff of Melba 13 (11.0-15.0) % Plt Count 146 L (150-400) K/uL MPV 10.30 (7.40-12.00) fL Neut % (Auto) 51.4 (48.0-80.0) % Lymph % (Auto) 28.3 (16.0-40.0) % Coke % (Auto) 14.5 (0.0-15.0) % Eos % (Auto) 5.6 (0.0-7.0) % Baso % (Auto) 0.2 (0.0-1.5) % Neut # (Auto) 2.2 (1.4-5.7) K/uL Lymph # (Auto) 1.2 (0.6-2.4) K/uL Coke # (Auto) 0.6 (0.0-0.8) K/uL Eos # (Auto) 0.2 (0.0-0.7) K/uL Baso # (Auto) 0.0 (0.0-0.1) K/uL D-Dimer, Quantitative 0.86 H (0.0-0.50) mg/L FEU Sodium 142 (136-148) mmol/L Potassium 3.9 (3.5-5.1) mmol/L Chloride 107 (98-107) mmol/L Carbon Dioxide 23.4 (21.0-32.0) mmol/L BUN 18 (7.0-18.0) mg/dL Creatinine 0.9 (0.8-1.3) mg/dL Est Cr Clr Drug Dosing 77.38 mL/min Estimated GFR (MDRD) > 60.0 ml/min Glucose 87 (74-106) mg/dL Calcium 8.7 (8.5-10.1) mg/dL Total Bilirubin 0.8 (0.2-1.0) mg/dL AST 25 (15-37) IU/L ALT 51 (14-63) IU/L Alkaline Phosphatase 50 (46-116) U/L Troponin I 0.068 H* (0.000-0.056) ng/mL Total Protein 6.8 (6.4-8.2) g/dL Albumin 3.8 (3.4-5.0) g/dL Globulin 3.0 (2.6-4.0) g/dL Albumin/Globulin Ratio 1.3 (0.9-1.6) 12/17/19 Range/Units 03:00 WBC (4.0-11.0) K/uL RBC (4.50-5.90) M/uL Hgb (13.0-17.0) g/dL Hct (38.0-50.0) % MCV (80.0-98.0) fL MCH (27.0-32.0) pg MCHC (31.0-37.0) g/dL RDW Std Deviation (28.0-62.0) fl RDW Coeff of Melba (11.0-15.0) % Plt Count (150-400) K/uL MPV (7.40-12.00) fL Neut % (Auto) (48.0-80.0) % Lymph % (Auto) (16.0-40.0) % Coke % (Auto) (0.0-15.0) % Eos % (Auto) (0.0-7.0) % Baso % (Auto) (0.0-1.5) % Neut # (Auto) (1.4-5.7) K/uL Lymph # (Auto) (0.6-2.4) K/uL Coke # (Auto) (0.0-0.8) K/uL Eos # (Auto) (0.0-0.7) K/uL Baso # (Auto) (0.0-0.1) K/uL D-Dimer, Quantitative (0.0-0.50) mg/L FEU Sodium (136-148) mmol/L Potassium (3.5-5.1) mmol/L Chloride (98-107) mmol/L Carbon Dioxide (21.0-32.0) mmol/L BUN (7.0-18.0) mg/dL Creatinine (0.8-1.3) mg/dL Est Cr Clr Drug Dosing mL/min Estimated GFR (MDRD) ml/min Glucose (74-106) mg/dL Calcium (8.5-10.1) mg/dL Total Bilirubin (0.2-1.0) mg/dL AST (15-37) IU/L ALT (14-63) IU/L Alkaline Phosphatase (46-116) U/L Troponin I 0.080 H* (0.000-0.056) ng/mL Total Protein (6.4-8.2) g/dL Albumin (3.4-5.0) g/dL Globulin (2.6-4.0) g/dL Albumin/Globulin Ratio (0.9-1.6) Meds: Medications Discontinued Medications Generic Name Dose Route Start Last Admin Trade Name Freq PRN Reason Stop Dose Admin Aspirin 324 mg 12/17/19 03:53 12/17/19 04:21 Aspirin PO 12/17/19 03:54 324 mg ONETIME ONE Administration Sodium Chloride 10 ml 12/17/19 00:40 Saline Flush FLUSH ASDIRECTED PRN Keep Vein Open Sodium Chloride 2.5 ml 12/17/19 00:40 Saline Flush FLUSH ASDIRECTED PRN Keep Vein Open Departure - Departure Time of Disposition: 03:46 Disposition: DC/Tfer to Acute Hospital 02 Condition: Good Clinical Impression: 2019 novel coronavirus disease (COVID-19), Dyspnea, Non-STEMI (non-ST elevated myocardial infarction) - Discharge Information Instructions: COVID-19 Referrals: Mario Villeda MD [Primary Care Provider] - Forms: ED Department Discharge Sepsis Event Note (ED) - Evaluation Sepsis Screening Result: No Definite Risk
--- NOTE | 2019-12-17 01:25 | CR ---
INDICATION: Shortness of breath, COVID-19 positive TECHNIQUE: Chest radiograph 1 view COMPARISON: None FINDINGS: Mediastinum: The mediastinum is normal in appearance. The heart silhouette is normal in size and morphology. Lung: Both lungs are unremarkable in appearance. No sign of pleural effusion seen. No pneumothorax is identified. Bone and Soft tissue: Unremarkable for age. IMPRESSION: 1. No acute cardiopulmonary disease is seen. Dictated by: Javon Melo MD @ 12/17/2019 01:24:16 (Electronically Signed)
[2019-12-17 01:55] LABS: BLOOD UREA NITROGEN,BUN 18 mg/dL (7.0-18.0); CARBON DIOXIDE,CO2 23.4 mmol/L (21.0-32.0); CHLORIDE,CL 107 mmol/L (98-107); GLUCOSE RANDOM 87 mg/dL (74-106); POTASSIUM,K 3.9 mmol/L (3.5-5.1); SODIUM,NA 142 mmol/L (136-148)
[2019-12-17] MEDS ORDERED: Aspirin 81 MG Tab.Chew PO ONE (03:53)
== END 2019-12-17 04:55 ==
LOC: MW.ED 00:12
DX: I21.4 Non-ST elevation (NSTEMI) myocardial infarction (principal); U07.1 COVID-19; I25.10 Atherosclerotic heart disease of native coronary artery without angina pectoris; E78.00 Pure hypercholesterolemia, unspecified; I10 Essential (primary) hypertension; Z95.5 Presence of coronary angioplasty implant and graft; Z79.01 Long term (current) use of anticoagulants; Z79.82 Long term (current) use of aspirin; Z79.899 Other long term (current) drug therapy; Z86.73 Personal history of transient ischemic attack (TIA), and cerebral infarction without residual deficits; Z88.0 Allergy status to penicillin
CPT/HCPCS: 36415; 71045; 80053; 84484; 85025; 85379; 93005; 99291; A9270; 93010

== ENCOUNTER 2020-08-18 00:47 | Emergency (ER) | payer MEDICARE, BC ==
[2020-08-18 04:26] LABS: BLOOD UREA NITROGEN,BUN 19 mg/dL (7.0-18.0); CARBON DIOXIDE,CO2 25.9 mmol/L (21.0-32.0); CHLORIDE,CL 109 mmol/L (98-107); GLUCOSE RANDOM 107 mg/dL (74-106); POTASSIUM,K 4.1 mmol/L (3.5-5.1); SODIUM,NA 144 mmol/L (136-148)
[2020-08-18] MEDS ORDERED: Iopamidol 755 Mg/ML 100 ML Bottle IVPUSH ONE (05:08)
--- NOTE | 2020-08-18 05:31 | CT ---
For Patients: As a result of the Century Cures Act, medical imaging exams and procedure reports are released immediately into your electronic medical record. You may view this report before your referring provider. If you have questions, please contact your health care provider. INDICATION: Bilateral non tender submandibular neck swelling TECHNIQUE: CT neck soft tissue with i.v. contrast. Coronal and sagittal reformats were obtained. CONTRAST: 100 mL Isovue 370 COMPARISON: None FINDINGS: Skull base: Unremarkable. Portions of the oral cavity and mandible are obscured by streak artifacts from the patient`s dental amalgams. Pharynx: No retropharyngeal fluid collections are identified. No CT evidence of tonsillar or peritonsillar abscess seen. The epiglottis is normal in appearance. Larynx and airway: Unremarkable. Salivary: There is asymmetric increased enhancement in the left submandibular gland noted with interstitial edema seen. Thyroid: Unremarkable. Vascular: Unremarkable for age. Lymph: Unremarkable. Bone: No acute fractures or aggressive bone lesions are identified. Disc: The disc spaces are unremarkable in appearance. The facet joints are unremarkable. Soft tissue: The prevertebral soft tissues are unremarkable in appearance. 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 IMPRESSIONS: 1. There is asymmetric increased enhancement in the left submandibular gland noted with interstitial edema seen. Findings are likely due to sialoadenitis and clinical follow-up is recommended to document resolution. 2. 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 Dictated by Javon Melo MD @ 08/18/2020 5:29:13 AM Please note that all CT scans at this facility use dose modulation, iterative reconstruction, and/or weight-based dosing when appropriate to reduce radiation dose to as low as reasonably achievable. Dictated by: Javon Melo MD @ 08/18/2020 05:30:27 (Electronically Signed)
--- NOTE | 2020-08-18 05:47 | EDM.PDOC ---
ED HPI GENERAL MEDICAL PROBLEM - General Chief Complaint: ENT Problem Stated Complaint: SWELLING UNDER CHIN LEFT SIDE Time Seen by Provider: 08/18/20 02:40 - History of Present Illness INITIAL COMMENTS - FREE TEXT/NARRATIVE: CHIEF COMPLAINT(S): Neck swelling HISTORY OF PRESENT ILLNESS: This is an 80-year-old man with a prior history of CAD, hypertension, AAA status post repair, COVID-19 who presents to the emergenc y department with neck swelling. The patient states that he just noticed that his neck is swelling underneath his jaw. He denies any pain in this area. He denies any trouble swallowing, change in voice, drooling, trismus. He states that he just does not know what it is. He denies any night sweats, weight loss or history of cancer. No family or personal history of lymphoma. He denies any other symptoms no fever no chills no chest pain no shortness of breath no runny nose no cough no congestion no earache no allergic symptoms. REVIEW OF SYSTEMS: Constitutional: Denies fever, chills. Eyes: Denies eye pain Ears, Nose, Mouth, & Throat: Positive for swelling of the neck under his jaw. Denies earache, sore throat, runny nose, congestion, trismus, drooling, change in voice Cardiovascular: Denies chest pain Respiratory: Denies shortness of breath Gastrointestinal: Denies Nausea, vomiting, diarrhea, hematochezia. Genitourinary: Denies hematuria Skin:Denies a rash MSK: Denies joint pain Neurological: Denies blurred vision numbness, tingling, weakness Psychiatric: Denies depression PAST MEDICAL HISTORY: As per history of present illness and as reviewed below otherwise noncontributory. SURGICAL HISTORY: As per history of present illness and as reviewed below otherwise noncontributory. SOCIAL HISTORY: As per history of present illness and as reviewed below otherwise noncontributory. FAMILY HISTORY: As per history of present illness and as reviewed below otherwise noncontributory. EXAMINATION OF ORGAN SYSTEMS/BODY AREAS: Constitutional: Blood pressure was 149/78, heart rate 63, respiratory rate 17 with an oxygen saturation 95% on room air. Temperature 36.3 General: Overall well-appearing man who is in no acute distress Psychiatric: Appropriate mood and affect. Eyes: No scleral icterus or conjunctival erythema ENMT: Moist mucous membranes. No pharyngeal erythema no trismus. No drooling. No stridor. There are some swelling under the left submandibular region which is nontender. No overlying skin changes. There is no buccal or mucosal irritation intraorally. Uvula was midline. Cardiovascular: Regular, rate, and rhythm. No gallops, murmurs, or rubs. Bilateral upper extremity pulses symmetric and intact. No peripheral edema. No JVD. Respiratory: Lungs clear to auscultation bilaterally. No wheezes, rales, or rhonchi. Gastrointestinal: Soft, non-tender, non-distended. Normoactive bowel sounds Genitourinary: No suprapubic tenderness Musculoskeletal: Normal range of motion. Skin: No lesions or abrasions. Neurological: Alert, GCS 15 MEDICAL DECISION MAKING AND COURSE IN THE ED WITH INTERPRETATION/REVIEW OF DIAGNOSTIC STUDIES: This is an 80-year-old man with a history CAD with prior history of CVA who presents to the emergency room with left submandibular swelling in the setting of no symptoms at all whatsoever. The patient's vitals are within normal limits. However given his age we will undergo work-up including CBC, CMP and we will obtain a CT neck with contrast to evaluate for what the swelling is. Differential does include enlarged lymph nodes secondary to unknown cause, lymphoma, blocked gland. Laboratory: CBC is unremarkable. CMP reveals hyperchloremia at 109, elevated BUN at 19, hyperglycemia at 107 and elevated bilirubin at 1.3 otherwise unremarkable. The radiological images were viewed by myself along with reading the report from the radiologist. CT soft tissue neck with contrast reveals no retropharyngeal fluid collections, no tonsillar or peritonsillar abscess. The larynx is unremarkable. There is asymmetric increased enhancement in the left submandibular gland noted with interstitial edema. This is likely due to sialoadenitis. Also shows the dilation of the aortic arch which is known. After imaging and labs I did discuss the results with the patient. I encouraged the patient to use sialagogues. He is to follow-up with his primary care physician. He has any worsening pain, this does not improve, he started to have fevers I wanted him to return to the emergency department. He was amenable to this plan and had no further questions. DISPOSITION: The patient was discharged home in stable condition. The patient will follow up with default value CONDITION: Good PROCEDURES: None FINAL IMPRESSION(S)/DIAGNOSES: 1. Acute left sialoadenitis Hair Mercer M.D. - Related Data Allergies Allergy/AdvReac Type Severity Reaction Status Date / Time Penicillins Allergy Rash Verified 08/18/20 02:34 Home Meds: Home Meds Aspirin [Halfprin] 81 mg PO DAILY 05/20/13 [History] Benazepril [Lotensin] 20 mg PO BID 05/20/13 [History] Folic Acid 1 mg PO DAILY 05/20/13 [History] atorvaSTATin [Lipitor] 80 mg PO DAILY 05/20/13 [History] Apixaban [Eliquis] 5 mg PO DAILY 12/17/19 [History] Past Medical History HEENT History: Reports: None Cardiovascular History: Reports: Aneurysm, CAD, High Cholesterol, Hypertension, Stents Respiratory History: Reports: None Gastrointestinal History: Reports: None Other Gastrointestinal History: hemrroid sx Genitourinary History: Reports: None Musculoskeletal History: Reports: None Neurological History: Reports: None, TIA Other Neuro History: tia in june 2019 Psychiatric History: Reports: None Endocrine/Metabolic History: Reports: None - Infectious Disease History Infectious Disease History: Reports: Chicken Pox, Measles, Mumps, Rubella - Past Surgical History Cardiovascular Surgical History: Reports: AAA Repair, Coronary Artery Stent Other Cardiovascular Surgeries/Procedures: Stents were in 2003. AAA repair in 2013 GI Surgical History: Reports: Appendectomy Social & Family History - Family History Family Medical History: No Pertinent Family History - Caffeine Use Caffeine Use: Reports: None - Recreational Drug Use Recreational Drug Use: No - Living Situation & Occupation Living situation: Reports: with Spouse Occupation: Retired ED ROS GENERAL - Review of Systems Review Of Systems: See Below ED EXAM, GENERAL - Physical Exam Exam: See Below Course - Vital Signs Last Recorded V/S: Last Vital Signs Temp 36.3 C 08/18/20 02:35 Pulse 78 08/18/20 05:45 Resp 17 08/18/20 05:45 BP 137/76 08/18/20 05:45 Pulse Ox 96 08/18/20 05:45 - Orders/Labs/Meds Labs: Laboratory Tests 08/18/20 08/18/20 Range/Units 04:01 04:01 WBC 8.63 (4.0-11.0) K/uL RBC 4.85 (4.50-5.90) M/uL Hgb 15.3 (13.0-17.0) g/dL Hct 46.4 (38.0-50.0) % MCV 95.7 (80.0-98.0) fL MCH 31.5 (27.0-32.0) pg MCHC 33.0 (31.0-37.0) g/dL RDW Std Deviation 47.5 (28.0-62.0) fl RDW Coeff of Melba 14 (11.0-15.0) % Plt Count 187 (150-400) K/uL MPV 11.00 (7.40-12.00) fL Neut % (Auto) 68.5 (48.0-80.0) % Lymph % (Auto) 17.1 (16.0-40.0) % Monona % (Auto) 9.6 (0.0-15.0) % Eos % (Auto) 4.5 (0.0-7.0) % Baso % (Auto) 0.3 (0.0-1.5) % Neut # (Auto) 5.9 H (1.4-5.7) K/uL Lymph # (Auto) 1.5 (0.6-2.4) K/uL Monona # (Auto) 0.8 (0.0-0.8) K/uL Eos # (Auto) 0.4 (0.0-0.7) K/uL Baso # (Auto) 0.0 (0.0-0.1) K/uL Nucleated RBC % 0.0 /100WBC Nucleated RBCs # 0 K/uL Sodium 144 (136-148) mmol/L Potassium 4.1 (3.5-5.1) mmol/L Chloride 109 H (98-107) mmol/L Carbon Dioxide 25.9 (21.0-32.0) mmol/L BUN 19 H (7.0-18.0) mg/dL Creatinine 1.1 (0.8-1.3) mg/dL Est Cr Clr Drug Dosing 62.27 mL/min Estimated GFR (MDRD) > 60.0 ml/min Glucose 107 H (74-106) mg/dL Calcium 8.6 (8.5-10.1) mg/dL Total Bilirubin 1.3 H (0.2-1.0) mg/dL AST 21 (15-37) IU/L ALT 36 (14-63) IU/L Alkaline Phosphatase 53 (46-116) U/L Total Protein 6.9 (6.4-8.2) g/dL Albumin 3.8 (3.4-5.0) g/dL Globulin 3.1 (2.6-4.0) g/dL Albumin/Globulin Ratio 1.2 (0.9-1.6) Meds: Medications Discontinued Medications Generic Name Dose Route Start Last Admin Trade Name Dm PRN Reason Stop Dose Admin Iopamidol 100 ml 08/18/20 05:08 08/18/20 05:15 Iopamidol 755 Mg/Ml 100 Ml Bottle IVPUSH 08/18/20 05:09 100 ml ONETIME ONE Administration Departure - Departure Time of Disposition: 06:32 Disposition: Home, Self-Care 01 Condition: Fair Clinical Impression: Sialoadenitis of submandibular gland - Discharge Information *PRESCRIPTION DRUG MONITORING PROGRAM REVIEWED*: No *COPY OF PRESCRIPTION DRUG MONITORING REPORT IN PATIENT LENIN: No Instructions: Salivary Gland Infection Referrals: Mario Villeda MD [Primary Care Provider] - Forms: ED Department Discharge Additional Instructions: A Octavio evaluated today on an emergent basis. At this time you appear to have a stone that is blocking your submandibular gland. It does not appear to be infected. Your discharge paperwork states salivary gland infection however that is her only discharge paperwork available. At this time I do recommend you suck on sour lozenges, lemon juice which stimulates the salivary glands and helps expel the stone. If you start to have worsening swelling, fever, redness I would like you to return to the emergency department. Otherwise please follow-up with your primary care physician to evaluate for resolution. [facility] - Primary [facility] [address] [place] [id number] [address] [id number] The patient is informed of any results of their evaluation and diagnostic workup and all questions are answered. They are given discharge instructions and return precautions. The patient is stable for discharge. The patient states they understand and agree with the plan and that they will return if their symptoms get worse or if they have any new concerns. The following information is given to patients seen in the emergency department who are being discharged to home. This information is to outline your options for follow-up care. We provide all patients seen in our emergency department with a follow-up referral. The need for follow-up, as well as the timing and circumstances, are variable depending upon the specifics of your emergency department visit. If you don't have a primary care physician on staff, we will provide you with a referral. We always advise you to contact your personal physician following an emergency department visit to inform them of the circumstance of the visit and for follow-up with them and/or the need for any referrals to a consulting specialist. The emergency department will also refer you to a specialist when appropriate. This referral assures that you have the opportunity for follow-up care with a sp ecialist. All of these measure are taken in an effort to provide you with optimal care, which includes your follow-up. Under all circumstances we always encourage you to contact your private physicia n who remains a resource for coordinating your care. When calling for follow-up care, please make the office aware that this follow-up is from your recent emergency room visit. If for any reason you are refused follow-up, please contact the [facility] Emergency Department at and asked to speak to the emergency department charge nurse. Sepsis Event Note (ED) - Evaluation Sepsis Screening Result: No Definite Risk
== END 2020-08-18 06:33 | disposition home or self-care (01) ==
LOC: MW.ED 00:47
DX: K11.21 Acute sialoadenitis (principal); I25.10 Atherosclerotic heart disease of native coronary artery without angina pectoris; E78.00 Pure hypercholesterolemia, unspecified; I10 Essential (primary) hypertension; Z88.0 Allergy status to penicillin; Z79.82 Long term (current) use of aspirin; Z79.01 Long term (current) use of anticoagulants; Z79.899 Other long term (current) drug therapy
CPT/HCPCS: 36415; 70491; 80053; 85025; 99284; Q9967; 99283

== ENCOUNTER 2021-04-28 12:02 | Inpatient (IN) | payer MEDICARE, BC ==
[2021-04-28] MEDS ORDERED: Sodium Chloride 0.9% 500 ML IV ONE ×2 (12:34→13:45)
[2021-04-28] MEDS ORDERED: Diltiazem 25 MG/5 ML SDV IVPUSH ONE (12:35)
[2021-04-28] MEDS ORDERED: Diltiazem 180 MG Cap.CD PO ONE (13:25)
[2021-04-28 13:37] LABS: CARBON DIOXIDE,CO2 27.4 mmol/L (21.0-32.0); POTASSIUM,K 4.5 mmol/L (3.5-5.1)
[2021-04-28] MEDS ORDERED: Aspirin 81 MG Tab.Chew PO ONE (13:51)
[2021-04-28] MEDS ORDERED: Diltiazem 100 MG in Sodium Chloride 0.9% 100 ML IV SCH (16:30)
[2021-04-28] MEDS ORDERED: Albuterol/Ipratropium 3.0-0.5 MG/3 ML Neb Soln NEB PRN (19:51)
[2021-04-28] MEDS ORDERED: Metoprolol Tartrate 25 MG Tab PO SCH (22:30)
[2021-04-28] MEDS ORDERED: Heparin Sodium/0.45% NaCl 500 ML IV SCH (23:00)
[2021-04-28] MEDS: atorvaSTATin 20 MG Tab PO SCH (23:26)
[2021-04-29] MEDS ORDERED: Heparin Sodium 5,000 Units/ML Vial IVPUSH ONE (05:14)
[2021-04-29 05:25] LABS: POTASSIUM,K 5.1 mmol/L (3.5-5.1)
[2021-04-29] MEDS: atorvaSTATin 20 MG Tab PO SCH (08:27)
[2021-04-29] MEDS ORDERED: Diltiazem 100 MG in Sodium Chloride 0.9% 100 ML IV SCH (09:00)
[2021-04-29] MEDS ORDERED: Metoprolol Tartrate 25 MG Tab PO SCH (09:00)
[2021-04-29] MEDS: Apixaban 5 MG Tab PO SCH ×2 (10:08→20:50)
[2021-04-29] MEDS: Digoxin 500 MCG/2 ML Amp IVPUSH SCH ×2 (10:53→17:03)
[2021-04-29] MEDS ORDERED: Lactated Ringers 500 ML IV ONE ×2 (11:10→11:30)
[2021-04-29] MEDS ORDERED: Digoxin 500 MCG/2 ML Amp IVPUSH ONE (22:17)
[2021-04-30] MEDS ORDERED: Digoxin 500 MCG/2 ML Amp IVPUSH ONE (04:40)
[2021-04-30 05:55] LABS: CARBON DIOXIDE,CO2 27.2 mmol/L (21.0-32.0); POTASSIUM,K 5.3 mmol/L (3.5-5.1)
[2021-04-30 06:04] LABS: ESTIMATED GFR 32.3 ml/min
[2021-04-30] MEDS ORDERED: Metoprolol Tartrate 25 MG Tab PO ONE (07:41)
[2021-04-30] MEDS: Apixaban 5 MG Tab PO SCH (08:33)
== END 2021-04-30 10:50 | DRG 308 ==
LOC: MW.ED 12:02 → MW.ICU 18:31
PROVIDERS: ADMIT Student in an Organized Health Care Education/Training Program; ATTEND Student in an Organized Health Care Education/Training Program
DX: I48.91 Unspecified atrial fibrillation (principal); I50.21 Acute systolic (congestive) heart failure; Z20.822 Contact with and (suspected) exposure to COVID-19; I11.0 Hypertensive heart disease with heart failure; E78.5 Hyperlipidemia, unspecified; I25.10 Atherosclerotic heart disease of native coronary artery without angina pectoris; I10 Essential (primary) hypertension; Z79.01 Long term (current) use of anticoagulants; N28.9 Disorder of kidney and ureter, unspecified; E78.00 Pure hypercholesterolemia, unspecified; Z86.16 Personal history of COVID-19; Z86.73 Personal history of transient ischemic attack (TIA), and cerebral infarction without residual deficits; Z95.5 Presence of coronary angioplasty implant and graft; Z88.0 Allergy status to penicillin; Z79.82 Long term (current) use of aspirin; Z79.899 Other long term (current) drug therapy
CPT/HCPCS: 36415; 71045; 80053; 83735; 83880; 84484 ×3; 85025; 85610; 85730; 93005 ×2; 96365; 96376; 99285; A9270 ×3; J3490 ×2; J7030 ×2; 51702; 84100; 93010; 93306; 99221; 99232; 99239; J1160; J1644; J7120; U0002